=== PATIENT | male | born 1995 | race Caucasian/White ===

== ENCOUNTER 2019-02-07 05:56 | Emergency (ER) | payer OTHER ==
[2019-02-07 06:24] VITALS: BP 135/61; PULSE 84; TEMP 98.2; BMI 24.3
[2019-02-07] MEDS ORDERED: NAPROXEN 500 MG TABLET (FP) PO ONE (07:14)
--- NOTE | 2019-02-07 07:21 | PDOC ---
History of Present Illness - General Chief Complaint: Ear Problem Stated Complaint: EAR PROBLEM,PAIN Time Seen by Provider: 02/07/19 07:10 History Source: Patient Exam Limitations: Clinical Condition - History of Present Illness Initial Comments: 02/07/19 07:25 Patient with no PMHx present with complains of 2 days h/o left ear pain which started yesterday as mild pain and worse this AM . Patient report increased pain when he opens his mouth wide. Denies fever, chills, dizziness, lightheadedness. Denies discharge or drainage from ear. Denies any other symptoms.Patient did not take anything for pain. Is this a multiple visit Asthma Patient?: No Timing/Duration: other (2 days) Past History - Past Medical History Allergies/Adverse Reactions: Allergies Allergy/AdvReac Type Severity Reaction Status Date / Time No Known Allergies Allergy Verified 02/07/19 06:20 Home Medications: Ambulatory Orders Naproxen 500 mg PO BID PRN #20 tablet 02/07/19 Neomycin/Polymyxin B/Hydrocort [[id number]-Xghtdreuh-[id number] Ear Susp] 4 drop Q6H 5 Days #1 bottle 02/07/19 COPD: Yes - Psycho Social/Smoking Cessation Hx Smoking History: Never smoked Hx Alcohol Use: No Review of Systems - Review of Systems Able to Perform ROS?: Yes Is the patient limited Khmer proficient: No Constitutional: No: Chills, Fever, Malaise HEENTM: Yes: Symptoms Reported, See HPI, Ear Pain (left ear pain). No: Eye Pain , Blurred Vision, Tearing, Recent change in vision, Double Vision, Cataracts, Ocular Prothesis, Ear Discharge, Nose Pain, Nose Congestion, Tinnitus, Nose Bleeding, Hearing Loss, Throat Pain, Throat Swelling, Mouth Pain, Dental Problems, Difficulty Swallowing, Mouth Swelling, Other Respiratory: No: Symptoms reported, See HPI, Cough, Orthopnea, Shortness of Breath, SOB with Exertion, SOB at Rest, Stridor, Wheezing, Productive cough, Hemoptysis, Other Cardiac (ROS): No: Symptoms Reported, See HPI, Chest Pain, Edema, Irregular Heart Rate, Lightheadedness, Palpitations, Syncope, Chest Tightness, Other ABD/GI: No: Symptoms Reported, Nausea, Vomiting Neurological: No: Symptoms reported, Headache, Numbness, Paresthesia, Dizziness All Other Systems: Reviewed and Negative *Physical Exam - Vital Signs Last Vital Signs Temp Pulse Resp BP Pulse Ox 98.2 F 84 19 135/61 99 02/07/19 06:00 02/07/19 06:00 02/07/19 06:00 02/07/19 06:00 02/07/19 06:00 - Physical Exam Comments: 02/07/19 07:23 GENERAL: Well developed, well nourished. Awake and alert. No acute distress. HEENT: moderate TTP over left TMJ. mild swelling in left external ear canal with mild erythema. right ear canal normal. Normocephalic, atraumatic. PERRLA, EOMI. No conjunctival pallor. Sclera are non-icteric. Moist mucous membranes. Oropharynx is clear. NECK: Supple. Full ROM. CARDIOVASCULAR: Regular rate and rhythm. No murmurs, rubs, or gallops. PULMONARY: No evidence of respiratory distress. Lungs clear to auscultation bilaterally. No wheezing, rales or rhonchi. ABDOMINAL: Soft. Non-tender. Non-distended. No rebound or guarding. No organomegaly. Normoactive bowel sounds. MUSCULOSKELETAL Normal range of motion at all joints. SKIN: Warm and dry. Normal capillary refill. No rashes. NEUROLOGICAL: Alert, awake, appropriate. Gait is normal without ataxia. PSYCHIATRIC: Cooperative. Good eye contact. Appropriate mood General Appearance: Yes: Nourished, Appropriately Dressed. No: Apparent Distress Medical Decision Making - Medical Decision Making 02/07/19 07:28 Patient with no PMHx present with complains of 2 days h/o left ear pain which started yesterday as mild pain and worse this AM . Patient report increased pain when he opens his mouth wide. Denies fever, chills, dizziness, lightheadedness. Denies discharge or drainage from ear. Denies any other symptoms.Patient did not take anything for pain. Exam significant for moderate tenderness to left TMJ area which is worse with occlusion of mouth against resistance. Mild swelling and erythema in left ear canal. no drainage from ear. Patient symptoms otitis external with TMJ arthralgia. Naproxen 500mg PO ordered for pain. Patient stable for discharge on naproxen prn for TMJ and neomycin- polymycin drops for otitis external with oral surgery f/u for TMJ. Patient stable for discharge Discharge - Discharge Information Problems reviewed: Yes Clinical Impression/Diagnosis: TMJ arthralgia Qualifiers: Laterality: left Qualified Code(s): M26.622 - Arthralgia of left temporomandibular joint Otitis externa Qualifiers: Otitis externa type: unspecified type Chronicity: acute Laterality: left Qualified Code(s): H60.502 - Unspecified acute noninfective otitis externa, left ear Condition: Stable Disposition: HOME - Admission No - Additional Discharge Information Prescriptions: Naproxen 500 mg PO BID PRN #20 tablet PRN Reason: pain Neomycin/Polymyxin B/Hydrocort [[id number]-[id number] Ear Susp] 4 drop Q6H 5 Days #1 bottle - Follow up/Referral Referrals: ON STAFF,NOT [Primary Care Provider] - - Patient Discharge Instructions Patient Printed Discharge Instructions: Temporomandibular Disorder, DI for Temporomandibular Disorder Additional Instructions: Your symptoms is likely caused by TMJ as discussed. Take prescribed medication as prescribed. Apply warm compress to left jaw 2-3 times a day as needed for pain. Follow-up with oral surgery if symptoms persist for more than 4 days - Post Discharge Activity
[2019-02-07] MEDS ORDERED: NAPROXEN 500 MG TABLET (FP) ONE (07:23)
== END 2019-02-07 07:35 | disposition home or self-care (01) ==
LOC: JER 05:56
DX: H60.502 Unspecified acute noninfective otitis externa, left ear (principal); M26.622 Arthralgia of left temporomandibular joint
CPT/HCPCS: 99281-25